=== PATIENT | female | born 1980 | race Caucasian/White ===

== ENCOUNTER 2017-02-27 11:48 | Emergency (ER) | payer MEDICAID ==
[~2017-02-27] VITALS: Ht 160 cm; Wt 64.9 kg
[2017-02-27 11:59] VITALS: BP 123/86
--- NOTE | 2017-02-27 12:04 | NUR ---
Patient ambulated to bed 08.
--- NOTE | 2017-02-27 12:14 | NUR ---
UA collected. Urine dipstick shown to Dr. Barakat.
--- NOTE | 2017-02-27 12:20 | NUR ---
36/F presents to the emergency room with complains of suprapubic pain accompanied with painful uirnation for the past 3 months. Pt states "I was scared to come because I was afraid of immigration." Pt states she was seen here and dx with kidney stones in September 2016. Pt denies any flank or back pain at this time. Patient c/o urinary burning, pulsating, stabbing pain to suprapubic area and inside vagina, non radiating, constant, worse with urination. Pt states "I have a pulsating pain inside." Pt states she has been taking Tylenol with improvement but states "The pain will come back after the medication wears off." Denies N/V/D. Denies fever or chills. Abdomen is soft, non tender, active bowel sounds x4 quadrants. LBM this morning. Pt denies medical hx.Pt is AOX4, citizen of [place] speaking only. VSS. Pt placed into a gown, placed in position of comfort. All needs addressed. Awaiting ERMD.
--- NOTE | 2017-02-27 13:02 | NUR ---
Dr. Barakat evaluating patient at bedside.
[2017-02-27] MEDS ORDERED: KETOROLAC 60 MG/2 ML VIAL IM ONE (13:05)
[2017-02-27 13:42] VITALS: BP 120/79
--- NOTE | 2017-02-27 13:42 | NUR ---
Patient discharged with v/s stable. Written and verbal after care instructions given and explained. Patient alert, oriented and verbalized understanding of instructions. Ambulatory with steady gait. All questions addressed prior to discharge. ID band removed. Patient advised to follow up with PMD. Rx of CIPRO 500MG TAB & MOTRIN 800MG TAB given. Patient educated on indication of medication including possible reaction and side effects. Opportunity to ask questions provided and answered.
--- NOTE | 2017-02-27 13:42 | NUR ---
Chart checked and completed. The patient's care was reviewed and supervised by Samantha Purcell RN.
== END 2017-02-27 13:42 | disposition home or self-care (01) ==
LOC: MED 11:48
DX: N39.0 Urinary tract infection, site not specified (principal)
CPT/HCPCS: 81002; 81025; 96372; 99283; J1885

== ENCOUNTER 2017-03-09 12:53 | Emergency (ER) | payer MEDICAID ==
[~2017-03-09] VITALS: Ht 160 cm; Wt 67.1 kg
[2017-03-09 13:14] VITALS: BP 133/82
--- NOTE | 2017-03-09 14:43 | NUR ---
PT CAME TO ER W/C/O ONGOING DYSURIA X3 MONTHS WAS SEEN HERE 02/27/2017 GIVEN IM LEFT GLUT-PT ADDS IM SITE REMAINS PAINFUL;DYSURIA AND NOW LEFT FLANK PAIN X 1 WK; DENIES ANY MEDICAL HX;DENIES CP/SOB AT THIS TIME;NO ACUTE DISTRESS NOTED;AAOX4;NEEDS ATTENDED;SAFETY MEASURES DONE;UNLBORED BREATHING;STEADY GAIT;POSITIONED FOR COMFORT;ALL MONITORS IN PLACED.
--- NOTE | 2017-03-09 15:01 | NUR ---
DR MORFIN AT BEDSIDE.
--- NOTE | 2017-03-09 15:45 | NUR ---
PT SLEEPING;DAUGHTER AT BEDSIDE;NO ACUTE DISTRESS NOTED;WILL CONTINUE TO MONITOR PT.
--- NOTE | 2017-03-09 16:21 | NUR ---
Patient taken to CT scan via wheelchair by tech.
--- NOTE | 2017-03-09 16:40 | NUR ---
BACK FROM CT SCAN;NO ACUTE DISTRESS NOTED;
--- NOTE | 2017-03-09 17:56 | NUR ---
pt lying on bed;no acute distress noted at this time;will continue to monitor pt.
--- NOTE | 2017-03-09 18:13 | NUR ---
Patient discharged with v/s stable. Written and verbal after care instructions given and explained.Patient alert, oriented and verbalized understanding of instructions. Ambulatory with steady gait. All questions addressed prior to discharge. ID band removed. Patient advised to follow up with PMD. Rx of ciprofloxacin given. Patient educated on indication of medication including possible reaction and side effects. Opportunity to ask questions provided and answered.advised pt to increase4 fluid intake;
[2017-03-09 18:14] VITALS: BP 126/84
== END 2017-03-09 18:13 | disposition home or self-care (01) ==
LOC: MED 12:53
DX: N39.0 Urinary tract infection, site not specified (principal); R03.0 Elevated blood-pressure reading, without diagnosis of hypertension
CPT/HCPCS: 74150; 81002; 81025; 99284

== ENCOUNTER 2017-06-05 17:08 | Emergency (ER) | payer MEDICAID ==
[~2017-06-05] VITALS: Ht 157.5 cm; Wt 64.6 kg
[2017-06-05 17:22] VITALS: BP 121/78
[2017-06-05 18:31] LABS: APPEARANCE,URINE SL CLOUDY (CLEAR); BILIRUBIN,URINE NEGATIVE (NEGATIVE); BLOOD, URINE 1+ (NEGATIVE); COLOR,URINE YELLOW (YELLOW); LEUKOCYTE ESTERASE ,URINE 1+ (NEGATIVE); NITRITE, URINE NEGATIVE (NEGATIVE); PROTEIN,URINE 2+ (NEGATIVE); UGLUCOSE NEGATIVE (NEGATIVE); UROBILINOGEN,URINE 0.2 EU/dL (0.2 - 1)
[2017-06-05 18:40] LABS: BACTERIA,URINE 2+ /HPF (None Seen); WBC,URINE TOO MANY TO COUNT /HPF (0-5)
--- NOTE | 2017-06-05 19:21 | NUR ---
Patient placed to OF at this time,
[2017-06-05] MEDS: IBUPROFEN 800 MG TAB PO ONE (20:44)
[2017-06-05 20:50] VITALS: BP 117/63
--- NOTE | 2017-06-05 20:50 | NUR ---
Patient discharged with v/s stable. Written and verbal after care instructions given and explained. Patient alert, oriented and verbalized understanding of instructions. Ambulatory with steady gait. All questions addressed prior to discharge. ID band removed. Patient advised to follow up with PMD. Rx of Macrobid, Pyridium, and Miralax given. Patient educated on indication of medication including possible reaction and side effects. Opportunity to ask questions provided and answered.
== END 2017-06-05 20:50 | disposition home or self-care (01) ==
LOC: MED 17:08
DX: N39.0 Urinary tract infection, site not specified (principal); R03.0 Elevated blood-pressure reading, without diagnosis of hypertension
CPT/HCPCS: 81001; 81025; 87086; 99284

== ENCOUNTER 2017-06-11 17:30 | Inpatient (IN) | payer MEDICAID ==
[~2017-06-11] VITALS: Ht 154.9 cm; Wt 58.1 kg
[2017-06-11 17:38] VITALS: BP 134/91
[2017-06-11 18:38] LABS: BASOPHILS # (AUTO) 0.4 K/uL (0.00-0.22); EOSINOPHILS # (AUTO) 0.1 K/uL (0-0.4); HEMATOCRIT 37.2 % (36-48); HEMOGLOBIN 11.9 g/dL (12.0-16.0); MEAN CORPUSCULAR HEMOGLOBIN 28 pg (27-31); MEAN CORPUSCULAR HGB CONC 32 g/dL (33-37); MEAN CORPUSCULAR VOLUME 89 fL (80-94); MONOCYTES # (AUTO) 0.3 K/uL (0.8-1.0); NEUTROPHILS # (AUTO) 3.4 K/uL (1.8-7.7); PLATELET COUNT (AUTO) 297 K/uL (140-450); RED BLOOD CELL COUNT(AUTO) 4.19 MIL/uL (4.20-5.40); RED CELL DISTRIBUTION WIDTH 13.1 % (11.6-13.7); WHITE BLOOD COUNT (AUTO) 6.2 K/uL (4.8-10.8)
[2017-06-11 18:47] LABS: BILIRUBIN,URINE NEGATIVE (NEGATIVE); BLOOD, URINE 3+ (NEGATIVE); COLOR,URINE YELLOW (YELLOW); LEUKOCYTE ESTERASE ,URINE TRACE (NEGATIVE); NITRITE, URINE NEGATIVE (NEGATIVE); PROTEIN,URINE 2+ (NEGATIVE); UGLUCOSE NEGATIVE (NEGATIVE); UROBILINOGEN,URINE 0.2 EU/dL (0.2 - 1)
[2017-06-11 18:48] LABS: APPEARANCE,URINE SLIGHTLY HAZY (CLEAR)
[2017-06-11 18:54] LABS: RBC,URINE TOO NUMEROUS TO COUN /HPF (0-5)
[2017-06-11 18:56] LABS: BACTERIA,URINE 1+ /HPF (None Seen)
[2017-06-11 18:59] LABS: ALBUMIN 3.7 g/dL (3.4-5.0); CALCIUM 9.1 mg/dL (8.5-10.1); CARBON DIOXIDE 26.8 mmol/L (21-32); CREATININE 0.7 mg/dL (0.6-1.3); POTASSIUM 3.8 mmol/L (3.5-5.1); TOTAL BILIRUBIN 0.2 mg/dL (0.0-1.0); TOTAL PROTEIN, SERUM 7.8 g/dL (6.4-8.2)
--- NOTE | 2017-06-11 19:06 | NUR ---
PT AMBULATED TO BED 8.
--- NOTE | 2017-06-11 19:18 | NUR ---
36 Y/O F W/C/O LOWER ABDOMINAL PAIN X1 WEEK. PT STATES SHE WAS SEEN IN ER 1 WEEK AGO AND THE S/SX HAVE NOT IMPROVED DESPITE TAKING ABX FOR UTI. HX RECURRENT KIDNEY STONES.
[2017-06-11] MEDS ORDERED: HYDROmorphone 1 MG/ML AMP IVP ONE (20:05)
--- NOTE | 2017-06-11 20:10 | NUR ---
PT RESTING IN BED, VSS. NO S/S OF DISTRESS NOTED AT THE MOMENT.
[2017-06-11] MEDS ORDERED: MORPHINE SULFATE 2 MG/ML SYR IVP PRN (20:15)
[2017-06-11] MEDS ORDERED: ONDANSETRON 4 MG/2 ML VIAL IVP PRN (20:15)
[2017-06-11] MEDS ORDERED: LORazepam 2 MG/ML VIAL IVP PRN (20:15)
[2017-06-11] MEDS ORDERED: ACETAMINOPHEN 325 MG TAB PO PRN (20:15)
--- NOTE | 2017-06-11 20:50 | NUR ---
Patient will be admitted to care of DR DONNELLY. Admited to MED SURG. Will go to room 120 A. Belongings list completed. Report to [facility].
--- NOTE | 2017-06-11 21:00 | NUR ---
PT TRASFER TO MED SURG BY EMT VIA WHEELCHAIR. NO S/S OF DISTRESS NOTED UPON TRANSFER.
[2017-06-11 21:09] VITALS: BP 132/73
--- NOTE | 2017-06-11 21:13 | NUR ---
PT CAME FROM THE ER VIA WHEELCHAIR ACCOMPANIED BY AND DAUGHTER. IS AOX4, ABLE TO MAKE NEEDS KNOWN, UKRAINIAN SPEAKING. NO COMPLAINTS OF PAIN AT THIS TIME. ABDOMEN ROUND AND TENDER ON PALPATION, IS ABLE TO VOID FREELY. ORIENTED PT TO THE UNIT, VERBALIZED UNDERSTANDING. WILL CONTINUE TO MONITOR. ALL NEEDS ATTENDED. CALL LIGHT WITHIN REACH.
[2017-06-11] MEDS: DEXT 5% /NACL 0.9% 1,000 ML IV SCH (21:39)
[2017-06-11] MEDS: LEVOFLOXACIN 500 MG/D5W PREMIX 100 ML IV SCH (21:44)
[2017-06-12] VITALS: BP 124/82
--- NOTE | 2017-06-12 | NUR ---
VITAL SIGNS STABLE. COMPLAINED OF BACK PAIN 01/18. OFFERED PAIN MEDICATION, BUT REFUSED. WILL CONTINUE TO MONITOR. ALL NEEDS ATTENDED. CALL LIGHT WITHIN REACH. SAFETY CHECKS IN PLACE.
--- NOTE | 2017-06-12 02:07 | NUR ---
MADE ROUNDS, PT SEEN ASLEEP. NO S/S OF DISTRESS. NO COMPLAINTS OF PAIN. WILL CONTINUE TO MONITOR FOR ANY CHANGES.
--- NOTE | 2017-06-12 04:15 | NUR ---
MADE ROUNDS, PT IS ASLEEP. NO S/S OF DISTRESS. CALL LIGHT WITHIN REACH. SAFETY CHECKS IN PLACE.
--- NOTE | 2017-06-12 06:10 | NUR ---
PT SEEN GOING TO BATHROOM, MENTIONED THAT THERE WAS SLIGHT REDNESS IN HER URINE. WILL CONTINUE TO MONITOR. SAFETY CHECKS IN PLACE.
[2017-06-12] MEDS: DEXT 5% /NACL 0.9% 1,000 ML IV SCH ×2 (06:15→20:12)
[2017-06-12 06:29] LABS: BASOPHILS # (AUTO) 0.1 K/uL (0.00-0.22); BASOPHILS % (AUTO) 2.1 % (0.0-2.0); EOSINOPHILS # (AUTO) 0.1 K/uL (0-0.4); EOSINOPHILS % (AUTO) 1.6 % (0.0-4.0); HEMATOCRIT 34.9 % (36-48); HEMOGLOBIN 11.6 g/dL (12.0-16.0); LYMPHOCYTES # (AUTO) 1.6 K/uL (2.5-16.5); LYMPHOCYTES % (AUTO) 23.7 % (20.5-51.1); MEAN CORPUSCULAR HEMOGLOBIN 29 pg (27-31); MEAN CORPUSCULAR HGB CONC 33 g/dL (33-37); MEAN CORPUSCULAR VOLUME 87 fL (80-94); MONOCYTES # (AUTO) 0.3 K/uL (0.8-1.0); MONOCYTES % (AUTO) 5.1 % (1.7-9.3); NEUTROPHILS # (AUTO) 4.6 K/uL (1.8-7.7); NEUTROPHILS % (AUTO) 67.5 % (42.2-75.2); PLATELET COUNT (AUTO) 263 K/uL (140-450); WHITE BLOOD COUNT (AUTO) 6.7 K/uL (4.8-10.8)
[2017-06-12 06:48] LABS: ANION GAP 10.2 (8-16); CALCIUM 8.4 mg/dL (8.5-10.1); CARBON DIOXIDE 28.1 mmol/L (21-32); CREATININE 0.6 mg/dL (0.6-1.3); POTASSIUM 4.3 mmol/L (3.5-5.1)
[2017-06-12 07:06] LABS: PHOSPHORUS 3.3 mg/dL (2.5-4.9)
--- NOTE | 2017-06-12 07:19 | NUR ---
ENDORSED TO MORNING SHIFT FOR CONTINUITY OF CARE, IN STABLE CONDITION.
--- NOTE | 2017-06-12 07:20 | NUR ---
RECEIVED REPORT FROM BREWERY TECHNICIAN NURSE. PT AWAKE AND ALERT, NO SIGNS OF ACUTE DISTRESS. [place] SPEAKING. BOWEL SOUNDS ACTIVE IN ALL 4 QUADRANTS. SKIN INTACT. AMBULATORY WITH BRP. IV PATENT AND ASYMPTOMATIC. PATIENT DENIES PAIN. RE-ORIENTED TO HOSPITAL AND TO UNIT. PT VERBALIZED UNDERSTANDING. BED IN LOW POSITION WITH BILATERAL HALF SIDE RAILS UP, CALL LIGHT WITHIN REACH. WILL CONTINUE TO MONITOR.
[2017-06-12 08:00] VITALS: BP 110/71
--- NOTE | 2017-06-12 08:28 | NUR ---
PATIENT HAS BEEN SCREENED AND CATEGORIZED MODERATE NUTRITION RISK. PATIENT WILL BE SEEN WITHIN 3-5 DAYS OF ADMISSION. 06/14/17-06/16/[address]
--- NOTE | 2017-06-12 10:20 | NUR ---
PT RESTING COMFORTABLY IN BED, NO SIGNS OF ACUTE DISTRESS. BED IN LOW POSITION WITH BILATERAL HALF SIDE RAILS UP, CALL LIGHT WITHIN REACH, SAFETY CHECKS IN PLACE. WILL CONTINUE TO MONITOR.
--- NOTE | 2017-06-12 11:00 | NUR ---
PT COMPLAINING OF INTERMITTENT PAIN 5/10 IN RIGHT BACK. RE-POSITIONED PATIENT AND WILL MEDICATE WITH PRN PAIN MEDICATION ORDERED. WILL CONTINUE TO MONITOR.
[2017-06-12] MEDS: HYDROcodone/APAP 5/325 MG 1 TAB TAB PO PRN ×2 (11:07→20:26)
--- NOTE | 2017-06-12 14:40 | NUR ---
RECEIVED NEW ORDERS FOR AM LABS 06/13/17 AND TO STRAIN URINE FROM DR ABY MOODY, NOTED, WILL CARRY OUT.
[2017-06-12 16:00] VITALS: BP 106/66
--- NOTE | 2017-06-12 16:57 | NUR ---
PT RESTING COMFORTABLY IN BED, SAFETY CHECKS IN PLACE, WILL CONTINUE TO MONITOR.
--- NOTE | 2017-06-12 19:11 | NUR ---
RECD. RESTING IN BED, AWAKE, A/OX4. RESPIRATION EVEN AND UNLABORED. IV OF D5NS AT 100ML/HR INFUSING LEFT AC G.20. ON BILATERAL LEG SEQUENTIALS. PLAN OF CARE FOR THE SHIFT DISCUSSED. VERBALIZED UNDERSTANDING. DENIES PAIN 0/10.
--- NOTE | 2017-06-12 19:11 | NUR ---
PATIENT AWAKE AND ALERT, NO SIGNS OF ACUTE DISTRESS. ENDORSED TO ELLIS DRAWING FRAME TENDER RN, FOR CONTINUITY OF CARE.
[2017-06-12] MEDS: LEVOFLOXACIN 500 MG/D5W PREMIX 100 ML IV SCH (20:12)
--- NOTE | 2017-06-12 20:30 | NUR ---
Patient's Plan of Care was discussed and reviewed with RN PATIENT SERVICES: ELLIS BOWLING
--- NOTE | 2017-06-12 20:37 | NUR ---
DR. ARREDONDO ORDERED [facility] TO START TOMORROW.
--- NOTE | 2017-06-12 20:40 | NUR ---
DR. ARREDONDO CAME AND CHECKED PATIENT. WILL FOLLOW UP WITH ANY NEW ORDERS.
--- NOTE | 2017-06-12 21:00 | NUR ---
COMPLAINT OF CONSTIPATION, HAD BM YESTERDAY BUT VERY SMALL. WARM PRUNE JUICE GIVEN.
--- NOTE | 2017-06-12 22:00 | NUR ---
ASSISTED TO BR TO VOID. STATED NO HEMATURIA NOTED IN HER URINE.
[2017-06-13] VITALS: BP 123/79
--- NOTE | 2017-06-13 | NUR ---
RESTING COMFORTABLY SLEEPING IN BED.
[2017-06-13] MEDS: DEXT 5% /NACL 0.9% 1,000 ML IV SCH ×2 (02:15→06:11)
[2017-06-13 07:03] LABS: ANION GAP 9.4 (8-16); CALCIUM 7.8 mg/dL (8.5-10.1); CARBON DIOXIDE 26.2 mmol/L (21-32); CREATININE 0.6 mg/dL (0.6-1.3); POTASSIUM 4.6 mmol/L (3.5-5.1)
--- NOTE | 2017-06-13 07:20 | NUR ---
CONDITION REMAIN STABLE. ENDORSED TO AM NURSE FOR CONTINUITY OF CARE.
--- NOTE | 2017-06-13 07:21 | NUR ---
PT AWAKE AND ALERT, NO SIGNS OF ACUTE DISTRESS. PT ON ROOM AIR. BOWEL SOUNDS ACTIVE IN ALL 4 QUADRANTS. SKIN INTACT. AMBULATORY WITH BRP. IV PATENT AND ASYMPTOMATIC. PATIENT DENIES PAIN AT THIS TIME. RE-ORIENTED TO HOSPITAL AND TO UNIT, PT VERBALIZED UNDERSTANDING. BED IN LOW POSITION WITH BILATERAL HALF SIDE RAILS UP, CALL LIGHT WITHIN REACH. WILL CONTINUE TO MONITOR.
[2017-06-13 08:00] VITALS: BP 107/73
[2017-06-13] MEDS ORDERED: TAMSULOSIN 0.4 MG CAP PO SCH (08:30)
[2017-06-13] MEDS ORDERED: LEVO750T2 PO (08:55)
[2017-06-13] MEDS ORDERED: TAMS0.4C96 PO (08:55)
[2017-06-13] MEDS ORDERED: IBUP-2213 PO (08:55)
--- NOTE | 2017-06-13 09:45 | NUR ---
RECEIVED DISCHARGE ORDER FROM DR MOODY, NOTED, WILL CARRY OUT.
--- NOTE | 2017-06-13 10:00 | NUR ---
PT RESTING COMFORTABLY IN BED, NO SIGNS OF ACUTE DISTRESS. INFORMED PATIENT OF DISCHARGE ORDER, PATIENT WILL DRIVE HERSELF HOME SHE LEFT HER CAR IN THE PARKING LOT HERE AT THE HOSPITAL. BED IN LOW POSITION WITH BILATERAL HALF SIDE RAILS UP, CALL LIGHT WITHIN REACH.
--- NOTE | 2017-06-13 13:25 | NUR ---
PT AWAKE AND ALERT, NO SIGNS OF ACUTE DISTRESS. USING THE [email or web address] POLLUTION CONTROL ENGINEER PHONE, POLLUTION CONTROL ENGINEER NUMBER [id number], EDUCATED PATIENT REGARDING NEW PRESCRIPTIONS, RESUMING ACTIVITY, SIGNS AND SYMPTOMS OF INFECTION AND WORSENING CONDITION AND TO FOLLOW UP WITH DR MOODY WITHIN [address] ARREDONDO WITHIN 2 WEEKS, PATIENT VERBALIZED UNDERSTANDING. CUT OFF WRIST BANDS, REMOVED IV. ESCORTED PATIENT OUT VIA FRONT LOBBY TO DRIVE HOME VIA PRIVATE AUTO.
== END 2017-06-13 13:25 | disposition home or self-care (01) | DRG 463 ==
LOC: MED 17:30 → MTU 20:22
PROVIDERS: ADMIT Preventive Medicine Preventive Medicine/Occupational Environmental Medicine; ATTEND Preventive Medicine Preventive Medicine/Occupational Environmental Medicine
DX: N39.0 Urinary tract infection, site not specified (principal); N13.2 Hydronephrosis with renal and ureteral calculous obstruction
CPT/HCPCS: 36415; 80048; 80053; 81001; 81025; 83690; 83735; 84100; 85025; 86140; 87081; 87086; 96374; 99285; J1170; J1956; J7042

== ENCOUNTER 2017-12-26 07:15 | Emergency (ER) | payer MEDICAID ==
[~2017-12-26] VITALS: Ht 157.5 cm; Wt 63.5 kg
[~2017-12-26 07:15] MED LIST: IBUP-2213 PO; LEVO750T2 PO; TAMS0.4C96 PO
--- NOTE | 2017-12-26 07:30 | NUR ---
PT AMBULATED TO BED 3.
[2017-12-26 07:31] VITALS: BP 149/99
--- NOTE | 2017-12-26 07:39 | NUR ---
36/F bib daughter with complaints of left ear pain x3 weeks worsening yesterday while at work. Pt reports having decreased hearing and bloody drainage from left ear since yesterday. Pt c/o 08/20, throbbing, non radiating, continuous pain. Pt states she did not see a doctor because she did not have money to see one. Denies any trauma or injury. Denies medical hx. AOX4, danish speaking. VSS.
[2017-12-26] MEDS ORDERED: KETOROLAC 30 MG/ML VIAL IVP ONE (07:50)
[2017-12-26] MEDS ORDERED: NACL 0.9% 1,000 ML IV ONE (07:50)
[2017-12-26] MEDS ORDERED: ceFAZolin 1,000 MG VIAL ONE (08:23)
[2017-12-26 08:42] LABS: HEMATOCRIT 38.7 % (36-48); HEMOGLOBIN 12.7 g/dL (12.0-16.0); MEAN CORPUSCULAR HEMOGLOBIN 29 pg (27-31); MEAN CORPUSCULAR HGB CONC 33 g/dL (33-37); MEAN CORPUSCULAR VOLUME 87 fL (80-94); PLATELET COUNT (AUTO) 258 K/uL (140-450); RED BLOOD CELL COUNT(AUTO) 4.44 MIL/uL (4.20-5.40); RED CELL DISTRIBUTION WIDTH 13.2 % (11.6-13.7)
[2017-12-26 08:44] LABS: ANION GAP 12.7 (8-16); CREATININE 0.5 mg/dL (0.6-1.3); POTASSIUM 3.7 mmol/L (3.5-5.1)
[2017-12-26 08:49] LABS: ALBUMIN 3.8 g/dL (3.4-5.0); TOTAL BILIRUBIN 0.2 mg/dL (0.0-1.0)
[2017-12-26 09:01] LABS: LYMPHOCYTES % (MANUAL) 8 % (20-46); MONOCYTES % (MANUAL) 2 % (5-12)
[2017-12-26 09:02] LABS: EOSINOPHILS % (MANUAL) 3 % (0-4)
--- NOTE | 2017-12-26 09:56 | NUR ---
IV removed, catheter intact and site benign. Applied folded 4x4 gauze and tape to stop bleeding.
[2017-12-26 09:57] VITALS: BP 115/65
--- NOTE | 2017-12-26 09:57 | NUR ---
Patient discharged with v/s stable. Written and verbal after care instructions given and explained. Patient alert, oriented and verbalized understanding of instructions. Ambulatory with steady gait. All questions addressed prior to discharge. ID band removed. Patient advised to follow up with PMD. Rx of Motrin 600mg, Ofloxacin 0.3% otic solution, Augmentin 875mg given. Patient educated on indication of medication including possible reaction and side effects. Work excuse provided to return 12/28/17. Opportunity to ask questions provided and answered.
== END 2017-12-26 09:57 | disposition home or self-care (01) ==
LOC: MED 07:15
DX: H66.92 Otitis media, unspecified, left ear (principal); Z79.899 Other long term (current) drug therapy
CPT/HCPCS: 36415; 70450; 80053; 83605; 84484; 85025; 87040; 96361; 96365; 96375; 99285; J0690; J1885; J7030; J7060

== ENCOUNTER 2019-03-28 07:21 | Emergency (ER) | payer MEDICAID ==
[~2019-03-28] VITALS: Ht 162.6 cm; Wt 64.6 kg
[2019-03-28 07:26] VITALS: BP 118/75
--- NOTE | 2019-03-28 07:31 | NUR ---
PT AMBULATED TO BED 6 AT THIS TIME.
--- NOTE | 2019-03-28 07:45 | NUR ---
PATIENT PRESENTS TO ED WITH C/O COUGH X3 DAYS. PT REPORTS DRY COUGH AND RT SIDED CP AND RT SHOULDER PAIN WITH COUGH. RR EVEN, NON-LABORED, AND BREATH SOUNDS CLEAR THROUGHOUT. - N/V/D OR FEVER . PATIENT STATES PAIN OF 6/10 AT THIS TIME; VSS; PATIENT POSITIONED FOR COMFORT; HOB ELEVATED; BEDRAILS UP X2; BED DOWN. ER MD MADE AWARE OF PT STATUS.
[2019-03-28] MEDS ORDERED: KETOROLAC 60 MG/2 ML VIAL IM ONE (08:30)
[2019-03-28 08:58] VITALS: BP 118/75
--- NOTE | 2019-03-28 08:58 | NUR ---
Patient discharged with v/s stable. Written and verbal after care instructions given and explained. ID band removed. Patient advised to follow up with PMD. Rx of PREDNISONE AND PROMETHAZINE given. Patient educated on indication of medication including possible reaction and side effects. ID band removed. Patient advised to follow up with PMD.
== END 2019-03-28 08:58 | disposition home or self-care (01) ==
LOC: MED 07:21
DX: J30.9 Allergic rhinitis, unspecified (principal); R07.9 Chest pain, unspecified; Z79.2 Long term (current) use of antibiotics; Z79.1 Long term (current) use of non-steroidal anti-inflammatories (NSAID); Z88.8 Allergy status to other drugs, medicaments and biological substances
CPT/HCPCS: 96372; 99283; J1885

== ENCOUNTER 2021-09-03 12:38 | Emergency (ER) | payer MEDICAID ==
[~2021-09-03] VITALS: Ht 160 cm; Wt 62.6 kg
[2021-09-03 12:40] VITALS: BP 136/78
--- NOTE | 2021-09-03 12:51 | NUR ---
Pt to wait in lobby for next available bed
[2021-09-03] MEDS ORDERED: NAPR-1847 PO (13:59)
--- NOTE | 2021-09-03 14:06 | NUR ---
PT SEEN AND D/C BY DR AWAN, NO NURSING INTERVENTIONS PROVIDED
--- NOTE | 2021-09-03 14:07 | NUR ---
Patient discharged with v/s stable. Written and verbal after care instructions ABOUT ARTHRITIS given and explained. Patient alert, oriented and verbalized understanding of instructions. Carried with steady gait. All questions addressed prior to discharge. ID band removed. Patient advised to follow up with PMD. Rx of NAPROXEN given. Patient educated on indication of medication including possible reaction and side effects. Opportunity to ask questions provided and answered.
== END 2021-09-03 14:07 | disposition home or self-care (01) ==
LOC: MED 12:38
DX: M19.012 Primary osteoarthritis, left shoulder (principal)
CPT/HCPCS: 99282

== ENCOUNTER 2024-06-15 16:22 | Emergency (ER) | payer MEDICAID, OTHER ==
[~2024-06-15] VITALS: Ht 152.4 cm; Wt 70.3 kg
[~2024-06-15 16:22] MED LIST changes: +NAPR-1847 PO
[2024-06-15 16:49] VITALS: BP 135/84; PULSE 73; RESP 19; TEMP 98; O2SAT 98
[2024-06-15 17:32] LABS: APPEARANCE,URINE SLIGHTLY CLOUDY (CLEAR); COLOR,URINE AMBER (YELLOW); PROTEIN,URINE 1+ (NEGATIVE)
[2024-06-15 17:33] LABS: BILIRUBIN,URINE NEGATIVE (NEGATIVE); BLOOD, URINE 3+ (NEGATIVE); LEUKOCYTE ESTERASE ,URINE 1+ (NEGATIVE); NITRITE, URINE NEGATIVE (NEGATIVE); UGLUCOSE NEGATIVE (NEGATIVE); UROBILINOGEN,URINE 0.2 EU/dL (0.2 - 1)
[2024-06-15 17:40] LABS: BACTERIA,URINE 10-30 (MOD) /HPF (None Seen); RBC,URINE 11-20 (MOD) /HPF (0-5); SQUAMOUS EPITHELIAL CELL,UR 0-3 (FEW) /LPF (0-3 (FEW))
[2024-06-15] MEDS ORDERED: PHEN-1877 PO (18:05)
[2024-06-15] MEDS ORDERED: CEPH-588 PO (18:05)
== END 2024-06-15 18:20 | disposition home or self-care (01) ==
LOC: MED 16:22
DX: N30.00 Acute cystitis without hematuria (principal); Z79.899 Other long term (current) drug therapy
CPT/HCPCS: 81001; 81025; 87086; 99283